=== PATIENT | female | born 1995 | race Two or more races ===

== ENCOUNTER → 2022-05-06 09:57 | Outpatient (RCR) | payer OTHER, SELFPAY ==
[2020-05-23 10:12] LABS: COVID-19 Test Negative (Negative)
[2020-06-24 08:25] LABS: COVID-19 Test Negative (Negative)
== END | disposition home or self-care (01) ==
LOC: HO.EMPCOV 05-23 09:50
PROVIDERS: Visit Provider Internal Medicine
DX: Z20.828 Contact with and (suspected) exposure to other viral communicable diseases (principal)
CPT/HCPCS: 87635; C9803